=== PATIENT | female | born 1955 | race Caucasian/White ===

== ENCOUNTER 2023-11-18 09:54 | Outpatient (CLI) | payer MEDICARE | END 2023-11-18 09:55 | disposition home or self-care (01) | LOC: CSHULT 09:54 | PROVIDERS: ATTEND Internal Medicine | DX: R79.89 Other specified abnormal findings of blood chemistry (principal); R31.21 Asymptomatic microscopic hematuria; N28.1 Cyst of kidney, acquired; K76.0 Fatty (change of) liver, not elsewhere classified; K80.20 Calculus of gallbladder without cholecystitis without obstruction | CPT/HCPCS: 76700 ==

== ENCOUNTER 2024-11-30 12:47 | Outpatient (CLI) | payer MEDICARE ==
[~2024-11-30 12:47] MED LIST: Iopamidol 300 61% 100 ML VIAL FS ONE
[2024-11-30 15:07] LABS: Estimated GFR - POC 54.0
== END 2024-11-30 12:48 | disposition home or self-care (01) ==
LOC: CSHCT 12:47
PROVIDERS: ATTEND Internal Medicine
DX: N39.0 Urinary tract infection, site not specified (principal); R31.9 Hematuria, unspecified; K80.20 Calculus of gallbladder without cholecystitis without obstruction
CPT/HCPCS: 74178; 82565